=== PATIENT | male | born 1975 | race African-American/Black ===

== ENCOUNTER 2021-05-26 09:00 | Inpatient (IN) ==
[2021-05-26] MEDS ORDERED: GLUCAGON 1 MG VIAL IM PRN (11:22)
[2021-05-26] MEDS ORDERED: DEXTROSE 10% 250 ML BAG IV PRN (11:22)
[2021-05-26] MEDS ORDERED: CLORAZEPATE 3.75 MG TABLET PO PRN (11:45)
[2021-05-26] MEDS ORDERED: NITROGLYCERIN SL 0.4 MG TABLET SL PRN (11:46)
[2021-05-26] MEDS ORDERED: MORPHINE 2 MG/1 ML SYRINGE IV PRN (11:46)
[2021-05-26] MEDS: INSULIN REGULAR 100 UNIT/ML SUBCUT SCH ×3 (12:58→21:11)
[2021-05-26] MEDS: SODIUM CHLORIDE 0.9% 1,000 ML IV SCH (12:58)
[2021-05-26 13:10] LABS: Basophils % 0.1 % (0.0-0.8); Eosinophils # 0.2 10*3/uL (0.0-0.87); Eosinophils % 2.8 % (0.00-10.9); Hematocrit 38.7 VOL% (42.0-52.0); Hemoglobin 12.6 GM/DL (14.0-18.0); Immature Granulocytes % 0.4 %; Immature Granulocytes Absolute 0.03 #; Lymphocytes # 2.1 10*3/uL (1.4-4.0); Mean Corpuscular HGB Conc 32.6 GM/DL (32-36); Mean Corpuscular Volume 83.4 FL (87-102); Mean Platelet Volume 9.4 FL (9.6-12.0); Monocytes % 9.8 % (1.7-12.7); Neutrophils % 57.9 % (38.7-73.9); Platelet Count 275 T/CUMM (130-400); Red Blood Count 4.64 MC/CUMM (3.8-5.5); Red Cell Distribution Width 15.3 % (9.3-17.3); White Blood Count 7.1 T/CUMM (4-12)
[2021-05-26] MEDS ORDERED: PNEUMOCOCCAL VACCINE (23 VALENT) 0.5 ML VIAL IM ONE (13:38)
[2021-05-26 13:40] LABS: Albumin 3.5 G/DL (3.4-5.0); Bilirubin,Total 0.6 MG/DL (0.20-1.00); Calcium 9.4 MG/DL (8.5-10.1); Osmolality,Calculated 279.4 MOS/KG (273-304); Potassium 3.8 MMOL/L (3.5-5.1)
[2021-05-26] MEDS: CHLORHEXIDINE 4% SOLN 118 ML BOTTLE TOP SCH ×2 (15:30→21:10)
[2021-05-26 16:21] LABS: Arterial Base Excess iSTAT -1 MMOL/L (-2.5-2.5); Arterial Bicarbonate iSTAT 23.4 MMOL/L (20-26); Arterial O2 Saturation iSTAT 97 % (95-100); Arterial PCO2 iSTAT 37 MM HG (35-48); Arterial PO2 iSTAT 95 MM HG (80-95); Arterial Total CO2 iSTAT 25 MMO/L (23-27); Arterial pH iSTAT 7.404 (7.35-7.45)
[2021-05-26] MEDS: CHLORHEXIDINE 0.12% ORAL RINSE 60 ML BOTTLE SWISH/SPIT SCH (21:10)
[2021-05-27] MEDS: CHLORHEXIDINE 4% SOLN 118 ML BOTTLE TOP SCH (04:19)
[2021-05-27] MEDS ORDERED: VANCOMYCIN 1,000 MG VIAL ONE (04:52)
[2021-05-27] MEDS ORDERED: VANCOMYCIN 500 MG VIAL ONE (04:52)
[2021-05-27] MEDS ORDERED: PAPAVERINE 60 MG/2 ML VIAL ONE (04:52)
[2021-05-27] MEDS ORDERED: CEFUROXIME INJ 1,500 MG in SODIUM CHLORIDE 0.9% 100 ML IV ONE (05:00)
[2021-05-27] MEDS ORDERED: HEPARIN/NACL 0.9% 2 UNITS/ML 1,000 UNIT/500 ML BAG IV ONE (05:45)
[2021-05-27] MEDS ORDERED: NITROGLYCERIN DRIP 50 MG/250 ML BOTTLE IV ONE (05:45)
[2021-05-27] MEDS ORDERED: PHENYLEPHRINE DRIP 20 MG/250 ML PREMIX IV ONE (05:45)
[2021-05-27] MEDS ORDERED: PANTOPRAZOLE 40 MG TABLET PO ONE (06:00)
[2021-05-27] MEDS ORDERED: DIAZEPAM 5 MG TABLET PO ONE (06:00)
[2021-05-27] MEDS ORDERED: ETOMIDATE 40 MG/20 ML VIAL IV ONE (06:06)
[2021-05-27] MEDS ORDERED: LIDOCAINE 2% 5 ML VIAL ONE ×2 (06:06→11:42)
[2021-05-27] MEDS ORDERED: SODIUM CHLORIDE 0.9% 1,000 ML IV ONE (06:06)
[2021-05-27] MEDS ORDERED: ePHEDrine 50 MG/ML VIAL ONE (06:06)
[2021-05-27] MEDS ORDERED: SUFentanil 250 MCG/5 ML AMP ONE (06:06)
[2021-05-27] MEDS ORDERED: MINERAL OIL/PETROLATUM OPH OINT 3.5 GM TUBE ONE (06:06)
[2021-05-27] MEDS ORDERED: SODIUM CHLORIDE 0.9% 250 ML IV ONE (06:06)
[2021-05-27] MEDS ORDERED: LACTATED RINGERS 1,000 ML IV ONE (06:06)
[2021-05-27] MEDS ORDERED: AMINOCAPROIC ACID 5,000 MG/20 ML VIAL ONE (06:06)
[2021-05-27] MEDS ORDERED: MIDAZOLAM 10 MG/2 ML VIAL ONE ×4 (06:06)
[2021-05-27] MEDS ORDERED: SEVOFLURANE 1 UNIT/15 MINUTE INH ONE (06:06)
[2021-05-27] MEDS ORDERED: VECURONIUM 10 MG VIAL IV ONE (06:07)
[2021-05-27 07:40] LABS: ABG Base Excess -0.4 MMOL/L (-2.5-2.5); ABG HCO3 24.1 MMOL/L (20-26); ABG Oxygen Saturation 99.5 % (95-100); ABG PH 7.409 (7.35-7.45); ABG TCO2 21.3 MMOL/L (23-27); Glucose Heart Surgery 122 MG/DL (74-106); Hematocrit Heart Surgery 36.5 PERCENT (42-52); Hemoglobin Heart Surgery 11.9 G/DL (14.0-18.0); Ionized Calcium Arterial 1.21 MMOL/L (1.21-1.46); PH Patient Temp Arterial 7.409; Patient Temperature 37 CELCIUS; Sodium Heart/CVR 141 MMOL/L (135-145)
[2021-05-27 07:48] LABS: Mucus,Urine Occasional /LPF (Occasional); RBC,Urine <1 /HPF (0-4); Squamous Epithelial Cell,Urine Occasional /HPF (0-10); Urine Appearance Clear (Clear); Urine Color Yellow (Yellow); Urine Specific Gravity 1.015 (1.001-1.035)
[2021-05-27 07:49] LABS: Bilirubin,Urine Negative (Negative); Blood, Urine Trace mg/dL (Negative); Glucose,Urine (UA) >1000 mg/dL (Negative); Ketones,Urine Negative (Negative); Nitrite,Urine Negative (Negative); Protein,Urine Negative (Negative); Urine Urobilinogen 0.2 eU/dL (<2.0)
[2021-05-27] MEDS ORDERED: POTASSIUM CHLORIDE RIDER 20 MEQ/100 ML PREMIX IV ONE (09:03)
[2021-05-27] MEDS ORDERED: NITROPRUSSIDE 50 MG/2 ML VIAL ONE (09:03)
[2021-05-27] MEDS ORDERED: ALBUMIN 5% 25.0 GM/500 ML VIAL IV ONE (09:03)
[2021-05-27] MEDS ORDERED: PHENYLEPHRINE DRIP 40 MG/250 ML PREMIX IV ONE (09:03)
[2021-05-27] MEDS ORDERED: CALCIUM CHLORIDE 1,000 MG/10 ML SYRINGE IV ONE (09:04)
[2021-05-27 09:27] LABS: Hematocrit Heart Surgery 24.6 PERCENT (42-52); Hemoglobin Heart Surgery 7.9 G/DL (14.0-18.0); PCO2 Patient Temp Venous 34.6 MM HG; PH Patient Temp Venous 7.451; PO2 Patient Temp Venous 36.3 MM HG; Potassium Heart/CVR 4.5 MMOL/L (3.5-5.1); VBG Base Excess 0.5 MEQ/L (0-4); VBG HCO3 24.7 MEQ/L (24-28); VBG Oxygen Saturation 77.7 %; VBG PH 7.407; VBG PO2 44.6 MMHG (17-40); VBG Total CO2 23.6 MMOL/L
[2021-05-27] MEDS: CHLORHEXIDINE 0.12% ORAL RINSE 60 ML BOTTLE SWISH/SPIT SCH ×2 (09:46→21:06)
[2021-05-27] MEDS: INSULIN REGULAR 100 UNIT/ML SUBCUT SCH ×2 (09:46→11:51)
[2021-05-27 09:58] LABS: Hematocrit Heart Surgery 28.3 PERCENT (42-52); Hemoglobin Heart Surgery 9.1 G/DL (14.0-18.0); PCO2 Patient Temp Venous 32.3 MM HG; PH Patient Temp Venous 7.462; PO2 Patient Temp Venous 36.7 MM HG; Potassium Heart/CVR 4.1 MMOL/L (3.5-5.1); VBG Base Excess -0.1 MEQ/L (0-4); VBG Oxygen Saturation 77.8 %; VBG PCO2 37.4 MMHG (41-51); VBG PH 7.418; VBG PO2 45.2 MMHG (17-40); VBG Total CO2 22.3 MMOL/L
[2021-05-27 10:26] LABS: Hematocrit Heart Surgery 29.9 PERCENT (42-52); Hemoglobin Heart Surgery 9.7 G/DL (14.0-18.0); PCO2 Patient Temp Venous 30.5 MM HG; PH Patient Temp Venous 7.466; PO2 Patient Temp Venous 38.5 MM HG; Potassium Heart/CVR 3.7 MMOL/L (3.5-5.1); VBG HCO3 23.3 MEQ/L (24-28); VBG Oxygen Saturation 80.7 %; VBG PCO2 35.3 MMHG (41-51); VBG PH 7.422; VBG PO2 47.3 MMHG (17-40); VBG Total CO2 21.1 MMOL/L
[2021-05-27 10:56] LABS: Hemoglobin Heart Surgery 8.8 G/DL (14.0-18.0); PCO2 Patient Temp Venous 32.3 MM HG; PH Patient Temp Venous 7.435; PO2 Patient Temp Venous 33.5 MM HG; Potassium Heart/CVR 4.2 MMOL/L (3.5-5.1); VBG Base Excess -2.7 MEQ/L (0-4); VBG HCO3 21.4 MEQ/L (24-28); VBG Oxygen Saturation 67.8 %; VBG PCO2 33.7 MMHG (41-51); VBG PH 7.42; VBG Total CO2 22.4 MMOL/L
[2021-05-27] MEDS ORDERED: THROMBIN TOPICAL (RECOMBINANT) 5,000 UNIT VIAL TOP ONE (11:19)
[2021-05-27 11:39] LABS: ABG HCO3 21.9 MMOL/L (20-26); ABG Oxygen Saturation 99.4 % (95-100); ABG PCO2 39.9 MM HG (35-48); ABG PH 7.355 (7.35-7.45); ABG TCO2 20.8 MMOL/L (23-27); Glucose Heart Surgery 255 MG/DL (74-106); Hematocrit Heart Surgery 25.4 PERCENT (42-52); Hemoglobin Heart Surgery 8.2 G/DL (14.0-18.0); Ionized Calcium Arterial 1.18 MMOL/L (1.21-1.46); PCO2 Patient Temp Arterial 39.9 MMHG; PH Patient Temp Arterial 7.355; Patient Temperature 37 CELCIUS; Potassium Heart/CVR 3.4 MMOL/L (3.5-5.1); Sodium Heart/CVR 136 MMOL/L (135-145)
[2021-05-27] MEDS ORDERED: CALCIUM CHLORIDE 1,000 MG/10 ML VIAL IV ONE (11:40)
[2021-05-27] MEDS ORDERED: methylPREDNISolone SOD SUC 1,000 MG/8 ML VIAL ONE (11:42)
[2021-05-27] MEDS ORDERED: MAGNESIUM SULFATE 5 GM/10 ML VIAL IV ONE (11:42)
[2021-05-27] MEDS ORDERED: PROTAMINE SULFATE 250 MG/25 ML VIAL IV ONE (11:42)
[2021-05-27] MEDS ORDERED: ALBUMIN 25% 25 GM/100 ML VIAL IV ONE (11:42)
[2021-05-27] MEDS ORDERED: DEXTROSE 5% KCL 20 MEQ 20 MEQ/1,000 ML BAG IV ONE (11:42)
[2021-05-27] MEDS ORDERED: HEPARIN 10,000 UNIT/10 ML VIAL ONE (11:43)
[2021-05-27] MEDS ORDERED: SODIUM BICARBONATE 50 MEQ/50 ML VIAL IV ONE (11:43)
[2021-05-27] MEDS ORDERED: PROTAMINE SULFATE 50 MG/5 ML VIAL IV ONE (11:43)
[2021-05-27] MEDS ORDERED: MANNITOL 12.5 GM/50 ML VIAL IV ONE (11:43)
[2021-05-27] MEDS ORDERED: FUROSEMIDE 20 MG/2 ML VIAL ONE (11:43)
[2021-05-27] MEDS ORDERED: CALCIUM CHLORIDE 1,000 MG/10 ML SYRINGE IV PRN (11:48)
[2021-05-27] MEDS ORDERED: CHLORHEXIDINE 4% SOLN 118 ML BOTTLE TOP PRN (11:48)
[2021-05-27] MEDS ORDERED: DEXTROSE 50% 25 GM/50 ML SYRINGE IV PRN ×2 (11:48)
[2021-05-27] MEDS ORDERED: NITROPRUSSIDE 100 MG in DEXTROSE 5% 250 ML IV PRN (11:48)
[2021-05-27] MEDS ORDERED: MAGNESIUM SULF RIDER 4 GM/100 ML PREMIX IV PRN (11:48)
[2021-05-27] MEDS ORDERED: INSULIN REGULAR 100 UNIT/ML IV PRN (11:48)
[2021-05-27] MEDS ORDERED: MAGNESIUM SULF RIDER 2 GM/50 ML PREMIX IV PRN (11:48)
[2021-05-27] MEDS ORDERED: VECURONIUM 10 MG VIAL IV PRN ×2 (11:48)
[2021-05-27] MEDS ORDERED: MIDAZOLAM 10 MG/2 ML VIAL IV PRN (11:48)
[2021-05-27] MEDS ORDERED: POTASSIUM CHLORIDE RIDER 20 MEQ/100 ML PREMIX IV PRN (11:48)
[2021-05-27] MEDS ORDERED: INSULIN REGULAR 100 UNIT/ML IV ONE (11:48)
[2021-05-27] MEDS ORDERED: ONDANSETRON 4 MG/2 ML VIAL IV PRN (11:48)
[2021-05-27] MEDS ORDERED: MIDAZOLAM 2 MG/2 ML VIAL IV PRN (11:48)
[2021-05-27] MEDS ORDERED: POTASSIUM CHLORIDE RIDER 10 MEQ/100 ML PREMIX IV PRN (11:48)
[2021-05-27] MEDS ORDERED: ACETAMINOPHEN 650 MG SUPP RECTAL PRN (11:48)
[2021-05-27] MEDS: SODIUM CHLORIDE 0.9% 1,000 ML IV SCH (11:51)
[2021-05-27] MEDS: SODIUM CHLORIDE 0.45% 1,000 ML IV SCH ×2 (12:40)
[2021-05-27] MEDS: PHENYLEPHRINE DRIP 40 MG/250 ML PREMIX IV PRN ×2 (12:45→17:45)
[2021-05-27 13:44] LABS: ABG Base Excess -4.8 MMOL/L (-2.5-2.5); ABG HCO3 20.5 MMOL/L (20-26); ABG Oxygen Saturation 98.5 % (95-100); ABG PCO2 40.8 MM HG (35-48); ABG TCO2 19.3 MMOL/L (23-27); Glucose Heart Surgery 253 MG/DL (74-106); Hematocrit Heart Surgery 30.1 PERCENT (42-52); Hemoglobin Heart Surgery 9.7 G/DL (14.0-18.0); Potassium Heart/CVR 3.8 MMOL/L (3.5-5.1)
[2021-05-27] MEDS: LACTATED RINGERS 250 ML IV PRN ×7 (13:45→18:18)
[2021-05-27 13:47] LABS: Basophils % 0.1 % (0.0-0.8); Hematocrit 28.9 VOL% (42.0-52.0); Immature Granulocytes % 1.4 %; Lymphocytes % 9.4 % (21.2-54.2); Mean Corpuscular HGB Conc 32.5 GM/DL (32-36); Mean Corpuscular Volume 83.8 FL (87-102); Mean Platelet Volume 9.8 FL (9.6-12.0); Monocytes % 7.1 % (1.7-12.7); Platelet Count 271 T/CUMM (130-400); Red Cell Distribution Width 15.3 % (9.3-17.3)
[2021-05-27 13:51] LABS: White Blood Count 21.4 T/CUMM (4-12)
[2021-05-27 13:52] LABS: Hemoglobin 9.4 GM/DL (14.0-18.0); Red Blood Count 3.45 MC/CUMM (3.8-5.5)
[2021-05-27] MEDS: KETOROLAC 30 MG/1 ML VIAL IV SCH ×2 (14:07→20:55)
[2021-05-27 14:13] LABS: CKMB % 7.2 %
[2021-05-27 14:16] LABS: Albumin 2.9 G/DL (3.4-5.0); Bilirubin,Total 1.5 MG/DL (0.20-1.00); Calcium 9.5 MG/DL (8.5-10.1); Osmolality,Calculated 287.4 MOS/KG (273-304); Potassium 3.9 MMOL/L (3.5-5.1); Total Protein 6.2 G/DL (6.4-8.2)
[2021-05-27 14:17] LABS: High Sensitive Troponin I* 17313.3 ng/L (0-78)
[2021-05-27 14:20] LABS: Band Neutrophils 2 % (0-10); Lymphocytes 7 % (20-55); Segmented Neutrophils 87 % (50-85); Total Cells Counted 100
[2021-05-27 14:21] LABS: Anisocytosis Slight; Microcytosis Slight; Platelet Estimate Normal; Polychromasia Slight; Target Cells Slight
[2021-05-27 14:26] LABS: INR 1.1; PT Patient Result 11.9 SECS (10.5-12.0); Partial Thromboplastin Time 24.8 SECS (23.8-32.1)
[2021-05-27] MEDS: INSULIN REGULAR DRIP 100 ML IV SCH (15:00)
[2021-05-27 15:57] LABS: ABG Base Excess -6.9 MMOL/L (-2.5-2.5); ABG HCO3 18.4 MMOL/L (20-26); ABG PCO2 36.2 MM HG (35-48); ABG PH 7.325 (7.35-7.45); ABG PO2 160.3 MM HG (80-95); ABG TCO2 19.6 MMOL/L (23-27); Glucose Heart Surgery 207 MG/DL (74-106); Hemoglobin Heart Surgery 9.4 G/DL (14.0-18.0); Potassium Heart/CVR 5.1 MMOL/L (3.5-5.1)
[2021-05-27] MEDS: ALBUMIN 5% 12.5 GM/250 ML VIAL IV PRN ×2 (15:59→20:34)
[2021-05-27] MEDS: MORPHINE 10 MG/1 ML VIAL IV PRN ×2 (17:03→22:53)
[2021-05-27 18:06] LABS: ABG Base Excess -6.7 MMOL/L (-2.5-2.5); ABG HCO3 18.9 MMOL/L (20-26); ABG Oxygen Saturation 98.4 % (95-100); ABG PCO2 39.1 MM HG (35-48); ABG TCO2 17.8 MMOL/L (23-27); Glucose Heart Surgery 200 MG/DL (74-106); Hematocrit Heart Surgery 29.6 PERCENT (42-52); Hemoglobin Heart Surgery 9.5 G/DL (14.0-18.0)
[2021-05-27 19:25] LABS: ABG HCO3 19.5 MMOL/L (20-26); ABG Oxygen Saturation 98.7 % (95-100); ABG PCO2 37.4 MM HG (35-48); ABG PH 7.325 (7.35-7.45); Glucose Heart Surgery 179 MG/DL (74-106); Hematocrit Heart Surgery 29.6 PERCENT (42-52); Hemoglobin Heart Surgery 9.6 G/DL (14.0-18.0); Potassium Heart/CVR 4.9 MMOL/L (3.5-5.1)
[2021-05-27 19:51] LABS: CKMB % 7.3 %; High Sensitive Troponin I* 11575.6 ng/L (0-78)
[2021-05-27] MEDS: CEFUROXIME INJ 1,500 MG in SODIUM CHLORIDE 0.9% 100 ML IV SCH (20:58)
[2021-05-27 23:31] LABS: ABG Base Excess -3.4 MMOL/L (-2.5-2.5); ABG HCO3 21.6 MMOL/L (20-26); ABG Oxygen Saturation 98.9 % (95-100); ABG PCO2 37.6 MM HG (35-48); ABG PH 7.366 (7.35-7.45); Glucose Heart Surgery 125 MG/DL (74-106); Hematocrit Heart Surgery 27.4 PERCENT (42-52); Hemoglobin Heart Surgery 8.8 G/DL (14.0-18.0); Potassium Heart/CVR 4.8 MMOL/L (3.5-5.1)
[2021-05-28 00:10] VITALS: BP 129/61
[2021-05-28] MEDS: INSULIN REGULAR DRIP 100 ML IV SCH ×2 (00:11→13:00)
[2021-05-28 01:05] LABS: ABG Base Excess -4.5 MMOL/L (-2.5-2.5); ABG HCO3 19.8 MMOL/L (20-26); ABG Oxygen Saturation 98.1 % (95-100); ABG PCO2 33.5 MM HG (35-48); ABG PH 7.389 (7.35-7.45); ABG PO2 155.5 MM HG (80-95); ABG TCO2 20.8 MMOL/L (23-27); Glucose Heart Surgery 116 MG/DL (74-106); Hemoglobin Heart Surgery 10.2 G/DL (14.0-18.0); Potassium Heart/CVR 4.7 MMOL/L (3.5-5.1)
[2021-05-28] MEDS: KETOROLAC 30 MG/1 ML VIAL IV SCH ×4 (01:40→20:55)
[2021-05-28] MEDS: MORPHINE 10 MG/1 ML VIAL IV PRN ×3 (01:51→22:54)
[2021-05-28 03:22] LABS: ABG Base Excess -2.9 MMOL/L (-2.5-2.5); ABG Oxygen Saturation 98.8 % (95-100); ABG PCO2 40.3 MM HG (35-48); ABG PH 7.353 (7.35-7.45); ABG TCO2 20.5 MMOL/L (23-27); Glucose Heart Surgery 150 MG/DL (74-106); Hematocrit Heart Surgery 30.6 PERCENT (42-52); Hemoglobin Heart Surgery 9.9 G/DL (14.0-18.0); Potassium Heart/CVR 5.1 MMOL/L (3.5-5.1)
[2021-05-28 03:29] LABS: Basophils % 0.1 % (0.0-0.8); Hematocrit 29.3 VOL% (42.0-52.0); Hemoglobin 9.7 GM/DL (14.0-18.0); Immature Granulocytes % 0.4 %; Immature Granulocytes Absolute 0.07 #; Lymphocytes # 1.4 10*3/uL (1.4-4.0); Lymphocytes % 8.3 % (21.2-54.2); Mean Corpuscular HGB Conc 33.1 GM/DL (32-36); Mean Corpuscular Volume 83.7 FL (87-102); Mean Platelet Volume 9.7 FL (9.6-12.0); Monocytes % 10.1 % (1.7-12.7); Neutrophils % 81.1 % (38.7-73.9); Platelet Count 191 T/CUMM (130-400); Red Cell Distribution Width 15.8 % (9.3-17.3); White Blood Count 16.3 T/CUMM (4-12)
[2021-05-28 03:45] LABS: CKMB % 7.3 %
[2021-05-28 03:50] LABS: High Sensitive Troponin I* 15528.6 ng/L (0-78)
[2021-05-28 03:51] LABS: Bilirubin,Direct 0.21 MG/DL (0.0-0.20); Bilirubin,Total 0.5 MG/DL (0.20-1.00); Calcium 8.8 MG/DL (8.5-10.1); Osmolality,Calculated 286.1 MOS/KG (273-304); Potassium 5.2 MMOL/L (3.5-5.1)
[2021-05-28] MEDS: LACTATED RINGERS 250 ML IV PRN (03:59)
[2021-05-28] MEDS: PHENYLEPHRINE DRIP 40 MG/250 ML PREMIX IV PRN (04:00)
[2021-05-28 04:30] LABS: ABG Base Excess -3.9 MMOL/L (-2.5-2.5); ABG HCO3 21.2 MMOL/L (20-26); ABG Oxygen Saturation 98.7 % (95-100); ABG PCO2 38.8 MM HG (35-48); ABG PH 7.348 (7.35-7.45); ABG TCO2 19.7 MMOL/L (23-27); Glucose Heart Surgery 153 MG/DL (74-106); Hematocrit Heart Surgery 29.1 PERCENT (42-52); Hemoglobin Heart Surgery 9.4 G/DL (14.0-18.0); Potassium Heart/CVR 4.7 MMOL/L (3.5-5.1)
[2021-05-28 05:29] LABS: ABG Base Excess -2.7 MMOL/L (-2.5-2.5); ABG HCO3 22.2 MMOL/L (20-26); ABG Oxygen Saturation 98.2 % (95-100); ABG PCO2 41.5 MM HG (35-48); ABG PH 7.349 (7.35-7.45); ABG TCO2 20.9 MMOL/L (23-27); Glucose Heart Surgery 155 MG/DL (74-106); Hematocrit Heart Surgery 30.1 PERCENT (42-52); Hemoglobin Heart Surgery 9.7 G/DL (14.0-18.0); Potassium Heart/CVR 4.6 MMOL/L (3.5-5.1)
[2021-05-28 06:42] LABS: ABG Base Excess -2.5 MMOL/L (-2.5-2.5); ABG HCO3 22.3 MMOL/L (20-26); ABG Oxygen Saturation 96.4 % (95-100); ABG PCO2 42.8 MM HG (35-48); ABG PH 7.342 (7.35-7.45); ABG PO2 94.6 MM HG (80-95); ABG TCO2 21.4 MMOL/L (23-27); Glucose Heart Surgery 152 MG/DL (74-106); Hematocrit Heart Surgery 29.5 PERCENT (42-52); Hemoglobin Heart Surgery 9.5 G/DL (14.0-18.0); Potassium Heart/CVR 4.3 MMOL/L (3.5-5.1)
[2021-05-28] MEDS ORDERED: ASPIRIN CHEW 81 MG TABLET PO SCH (09:00)
[2021-05-28] MEDS ORDERED: PANTOPRAZOLE 40 MG VIAL IV SCH (09:00)
[2021-05-28] MEDS: PANTOPRAZOLE 40 MG TABLET PO SCH (09:40)
[2021-05-28] MEDS: CEFUROXIME INJ 1,500 MG in SODIUM CHLORIDE 0.9% 100 ML IV SCH ×2 (09:40→20:55)
[2021-05-28] MEDS: ASPIRIN EC 81 MG TABLET PO SCH (09:40)
[2021-05-28] MEDS: CHLORHEXIDINE 0.12% ORAL RINSE 60 ML BOTTLE SWISH/SPIT SCH ×2 (09:40→20:55)
[2021-05-28 12:50] LABS: CKMB % 6.1 %
[2021-05-28 12:51] LABS: High Sensitive Troponin I* 10817.6 ng/L (0-78)
[2021-05-28] MEDS: SODIUM CHLORIDE 0.45% 1,000 ML IV SCH ×2 (14:36)
[2021-05-29] MEDS: KETOROLAC 30 MG/1 ML VIAL IV SCH ×4 (01:15→20:55)
[2021-05-29 04:34] LABS: Basophils % 0.1 % (0.0-0.8); Hematocrit 28.3 VOL% (42.0-52.0); Hemoglobin 8.9 GM/DL (14.0-18.0); Immature Granulocytes % 0.4 %; Immature Granulocytes Absolute 0.07 #; Lymphocytes # 1.6 10*3/uL (1.4-4.0); Lymphocytes % 9.7 % (21.2-54.2); Mean Corpuscular HGB Conc 31.4 GM/DL (32-36); Mean Corpuscular Volume 86.3 FL (87-102); Mean Platelet Volume 10.4 FL (9.6-12.0); Monocytes % 10.5 % (1.7-12.7); Neutrophils % 79.3 % (38.7-73.9); Platelet Count 167 T/CUMM (130-400); Red Blood Count 3.28 MC/CUMM (3.8-5.5); Red Cell Distribution Width 15.7 % (9.3-17.3); White Blood Count 16.7 T/CUMM (4-12)
[2021-05-29] MEDS: MORPHINE 10 MG/1 ML VIAL IV PRN (04:47)
[2021-05-29 05:17] LABS: Albumin 2.8 G/DL (3.4-5.0); Bilirubin,Direct 0.11 MG/DL (0.0-0.20); Bilirubin,Total 0.5 MG/DL (0.20-1.00); Calcium 8.5 MG/DL (8.5-10.1); Osmolality,Calculated 292.7 MOS/KG (273-304); Potassium 4.4 MMOL/L (3.5-5.1); Total Protein 6.1 G/DL (6.4-8.2)
[2021-05-29 05:19] LABS: CKMB % 3.9 %; High Sensitive Troponin I* 6104.3 ng/L (0-78)
[2021-05-29] MEDS: METOPROLOL TARTRATE 25 MG TABLET PO SCH ×2 (10:00→21:15)
[2021-05-29] MEDS: ASPIRIN EC 81 MG TABLET PO SCH (10:00)
[2021-05-29] MEDS: CHLORHEXIDINE 0.12% ORAL RINSE 60 ML BOTTLE SWISH/SPIT SCH ×2 (10:00→21:16)
[2021-05-29] MEDS: PANTOPRAZOLE 40 MG TABLET PO SCH (10:00)
[2021-05-29] MEDS: SODIUM CHLORIDE 0.45% 1,000 ML IV SCH ×2 (13:08)
[2021-05-29] MEDS: INSULIN REGULAR DRIP 100 ML IV SCH (13:09)
[2021-05-29] MEDS ORDERED: ALUMINUM/MAGNES/SIMETH MAX STR 30 ML UDCUP PO PRN (13:56)
[2021-05-29] MEDS ORDERED: DEXTROSE 10% 250 ML BAG IV PRN (13:56)
[2021-05-29] MEDS ORDERED: MAGNESIUM HYDROXIDE SUSP 30 ML UDCUP PO PRN (13:56)
[2021-05-29] MEDS ORDERED: MAGNESIUM SULF RIDER 2 GM/50 ML PREMIX IV PRN (13:56)
[2021-05-29] MEDS ORDERED: ACETAMINOPHEN 325 MG TABLET PO PRN (13:56)
[2021-05-29] MEDS ORDERED: GLUCAGON 1 MG VIAL IM PRN (13:56)
[2021-05-29] MEDS ORDERED: ONDANSETRON 4 MG/2 ML VIAL IV PRN (13:56)
[2021-05-29] MEDS ORDERED: MAGNESIUM SULF RIDER 4 GM/100 ML PREMIX IV PRN (13:56)
[2021-05-29] MEDS ORDERED: ZALEPLON 5 MG CAPSULE PO PRN (13:56)
[2021-05-29] MEDS: DOCUSATE SODIUM 100 MG CAPSULE PO SCH (14:00)
[2021-05-29] MEDS: oxyCODONE/ACETAMINOPHEN 5-325 MG TABLET PO PRN ×2 (16:36→21:16)
[2021-05-29] MEDS: ATORVASTATIN 80 MG TABLET PO SCH (21:15)
[2021-05-29] MEDS: CITALOPRAM 20 MG TABLET PO SCH (21:15)
[2021-05-29] MEDS: allopurinoL 300 MG TABLET PO SCH (21:16)
[2021-05-29] MEDS: GABAPENTIN 600 MG TABLET PO SCH (21:16)
[2021-05-30] MEDS: KETOROLAC 30 MG/1 ML VIAL IV SCH ×4 (01:30→19:55)
[2021-05-30] MEDS: oxyCODONE/ACETAMINOPHEN 5-325 MG TABLET PO PRN ×2 (03:13→20:51)
[2021-05-30 04:45] LABS: Basophils % 0.1 % (0.0-0.8); Eosinophils % 0.1 % (0.00-10.9); Hematocrit 28.3 VOL% (42.0-52.0); Immature Granulocytes % 0.7 %; Immature Granulocytes Absolute 0.12 #; Lymphocytes # 1.6 10*3/uL (1.4-4.0); Lymphocytes % 9.2 % (21.2-54.2); Mean Corpuscular HGB Conc 31.8 GM/DL (32-36); Monocytes % 9.6 % (1.7-12.7); Neutrophils % 80.3 % (38.7-73.9); Platelet Count 195 T/CUMM (130-400); Red Blood Count 3.29 MC/CUMM (3.8-5.5); Red Cell Distribution Width 15.8 % (9.3-17.3); White Blood Count 17.3 T/CUMM (4-12)
[2021-05-30 05:05] LABS: Albumin 2.8 G/DL (3.4-5.0); Bilirubin,Direct 0.21 MG/DL (0.0-0.20); Bilirubin,Indirect 0.7 MG/DL (0.0-1.0); Bilirubin,Total 0.9 MG/DL (0.20-1.00); CKMB % 2.1 %; Calcium 8.8 MG/DL (8.5-10.1); High Sensitive Troponin I* 4386.1 ng/L (0-78); Osmolality,Calculated 296.6 MOS/KG (273-304); Total Protein 6.5 G/DL (6.4-8.2)
[2021-05-30] MEDS ORDERED: FUROSEMIDE 40 MG/4 ML VIAL IV ONE (06:00)
[2021-05-30] MEDS: GABAPENTIN 600 MG TABLET PO SCH ×2 (09:00→20:52)
[2021-05-30] MEDS: PANTOPRAZOLE 40 MG TABLET PO SCH (09:59)
[2021-05-30] MEDS: DOCUSATE SODIUM 100 MG CAPSULE PO SCH (09:59)
[2021-05-30] MEDS: METOPROLOL SUCCINATE XL 25 MG TABLET PO SCH (09:59)
[2021-05-30] MEDS: ASPIRIN EC 81 MG TABLET PO SCH (09:59)
[2021-05-30] MEDS: ASCORBIC ACID 500 MG TABLET PO SCH ×2 (09:59→20:50)
[2021-05-30] MEDS: CHLORHEXIDINE 0.12% ORAL RINSE 60 ML BOTTLE SWISH/SPIT SCH ×2 (10:00→20:54)
[2021-05-30] MEDS: FERROUS SULFATE 325 MG TABLET PO SCH (10:06)
[2021-05-30] MEDS: POLYETHYLENE GLYCOL POWDER 17 GM PACK PO SCH (10:20)
[2021-05-30] MEDS: CITALOPRAM 20 MG TABLET PO SCH (20:50)
[2021-05-30] MEDS: allopurinoL 300 MG TABLET PO SCH (20:51)
[2021-05-30] MEDS: ATORVASTATIN 80 MG TABLET PO SCH (20:51)
[2021-05-31] MEDS: KETOROLAC 30 MG/1 ML VIAL IV SCH ×4 (01:14→20:16)
[2021-05-31] MEDS: oxyCODONE/ACETAMINOPHEN 5-325 MG TABLET PO PRN ×2 (01:18→09:30)
[2021-05-31 03:44] LABS: Basophils % 0.1 % (0.0-0.8); Eosinophils # 0.1 10*3/uL (0.0-0.87); Eosinophils % 0.5 % (0.00-10.9); Hematocrit 27.4 VOL% (42.0-52.0); Hemoglobin 8.8 GM/DL (14.0-18.0); Immature Granulocytes % 0.6 %; Immature Granulocytes Absolute 0.08 #; Lymphocytes # 2.7 10*3/uL (1.4-4.0); Lymphocytes % 19.6 % (21.2-54.2); Mean Corpuscular HGB Conc 32.1 GM/DL (32-36); Mean Corpuscular Volume 85.4 FL (87-102); Mean Platelet Volume 9.8 FL (9.6-12.0); Monocytes % 7.2 % (1.7-12.7); Platelet Count 246 T/CUMM (130-400); Red Blood Count 3.21 MC/CUMM (3.8-5.5); Red Cell Distribution Width 15.9 % (9.3-17.3); White Blood Count 13.6 T/CUMM (4-12)
[2021-05-31 04:10] LABS: Albumin 2.8 G/DL (3.4-5.0); Bilirubin,Direct 0.22 MG/DL (0.0-0.20); Bilirubin,Indirect 0.5 MG/DL (0.0-1.0); Bilirubin,Total 0.7 MG/DL (0.20-1.00); CKMB % 1.5 %; Calcium 8.4 MG/DL (8.5-10.1); High Sensitive Troponin I* 3958.4 ng/L (0-78); Osmolality,Calculated 289.1 MOS/KG (273-304); Potassium 4.1 MMOL/L (3.5-5.1); Total Protein 6.5 G/DL (6.4-8.2)
[2021-05-31] MEDS: POTASSIUM CHLORIDE 20 MEQ TABLET PO PRN (05:57)
[2021-05-31] MEDS: DOCUSATE SODIUM 100 MG CAPSULE PO SCH (09:28)
[2021-05-31] MEDS: ASPIRIN EC 81 MG TABLET PO SCH (09:28)
[2021-05-31] MEDS: GABAPENTIN 600 MG TABLET PO SCH ×2 (09:29→20:20)
[2021-05-31] MEDS: FERROUS SULFATE 325 MG TABLET PO SCH (09:29)
[2021-05-31] MEDS: PANTOPRAZOLE 40 MG TABLET PO SCH (09:29)
[2021-05-31] MEDS: METOPROLOL SUCCINATE XL 25 MG TABLET PO SCH (09:30)
[2021-05-31] MEDS: ASCORBIC ACID 500 MG TABLET PO SCH ×2 (09:30→20:20)
[2021-05-31] MEDS: CHLORHEXIDINE 0.12% ORAL RINSE 60 ML BOTTLE SWISH/SPIT SCH ×2 (09:32→20:20)
[2021-05-31] MEDS: POLYETHYLENE GLYCOL POWDER 17 GM PACK PO SCH (09:32)
[2021-05-31] MEDS: CITALOPRAM 20 MG TABLET PO SCH (20:20)
[2021-05-31] MEDS: ATORVASTATIN 80 MG TABLET PO SCH (20:20)
[2021-05-31] MEDS: allopurinoL 300 MG TABLET PO SCH (20:20)
[2021-06-01] MEDS: KETOROLAC 30 MG/1 ML VIAL IV SCH ×2 (02:10→07:20)
[2021-06-01 03:44] LABS: Basophils % 0.3 % (0.0-0.8); Eosinophils # 0.3 10*3/uL (0.0-0.87); Eosinophils % 2.1 % (0.00-10.9); Hematocrit 27.6 VOL% (42.0-52.0); Hemoglobin 9.1 GM/DL (14.0-18.0); Immature Granulocytes % 0.9 %; Lymphocytes # 2.4 10*3/uL (1.4-4.0); Lymphocytes % 20.7 % (21.2-54.2); Mean Corpuscular Volume 85.2 FL (87-102); Mean Platelet Volume 9.4 FL (9.6-12.0); Platelet Count 242 T/CUMM (130-400); Red Blood Count 3.24 MC/CUMM (3.8-5.5); Red Cell Distribution Width 15.8 % (9.3-17.3); White Blood Count 11.8 T/CUMM (4-12)
[2021-06-01 03:59] LABS: Albumin 2.5 G/DL (3.4-5.0); Bilirubin,Total 0.5 MG/DL (0.20-1.00); Calcium 8.7 MG/DL (8.5-10.1); Osmolality,Calculated 286.4 MOS/KG (273-304); Potassium 4.4 MMOL/L (3.5-5.1); Total Protein 6.2 G/DL (6.4-8.2)
[2021-06-01] MEDS: POTASSIUM CHLORIDE 20 MEQ TABLET PO PRN (05:24)
[2021-06-01] MEDS: DOCUSATE SODIUM 100 MG CAPSULE PO SCH (08:48)
[2021-06-01] MEDS: FERROUS SULFATE 325 MG TABLET PO SCH (08:48)
[2021-06-01] MEDS: CHLORHEXIDINE 0.12% ORAL RINSE 60 ML BOTTLE SWISH/SPIT SCH ×2 (08:48→20:39)
[2021-06-01] MEDS: POLYETHYLENE GLYCOL POWDER 17 GM PACK PO SCH (08:48)
[2021-06-01] MEDS: METOPROLOL SUCCINATE XL 25 MG TABLET PO SCH (08:48)
[2021-06-01] MEDS: ASCORBIC ACID 500 MG TABLET PO SCH ×2 (08:48→20:36)
[2021-06-01] MEDS: PANTOPRAZOLE 40 MG TABLET PO SCH (08:48)
[2021-06-01] MEDS: ASPIRIN EC 81 MG TABLET PO SCH (08:48)
[2021-06-01] MEDS: GABAPENTIN 600 MG TABLET PO SCH ×2 (08:48→20:36)
[2021-06-01] MEDS: oxyCODONE/ACETAMINOPHEN 5-325 MG TABLET PO PRN (15:50)
[2021-06-01] MEDS: allopurinoL 300 MG TABLET PO SCH (20:36)
[2021-06-01] MEDS: CITALOPRAM 20 MG TABLET PO SCH (20:37)
[2021-06-02 04:51] LABS: Basophils % 0.2 % (0.0-0.8); Eosinophils # 0.4 10*3/uL (0.0-0.87); Eosinophils % 2.7 % (0.00-10.9); Hematocrit 27.7 VOL% (42.0-52.0); Hemoglobin 8.9 GM/DL (14.0-18.0); Immature Granulocytes % 0.8 %; Immature Granulocytes Absolute 0.11 #; Lymphocytes # 2.6 10*3/uL (1.4-4.0); Mean Corpuscular HGB Conc 32.1 GM/DL (32-36); Mean Corpuscular Volume 85.2 FL (87-102); Mean Platelet Volume 9.3 FL (9.6-12.0); Monocytes % 7.3 % (1.7-12.7); Platelet Count 253 T/CUMM (130-400); Red Blood Count 3.25 MC/CUMM (3.8-5.5); Red Cell Distribution Width 15.5 % (9.3-17.3); White Blood Count 13.9 T/CUMM (4-12)
[2021-06-02 05:20] LABS: Alanine Aminotransferase 139 U/L (16-61); Albumin 2.6 G/DL (3.4-5.0); Alkaline Phosphatase 82 U/L (45-117); Aspartate Amino Transferase 58 U/L (0-37); Bilirubin,Indirect 0.3 MG/DL (0.0-1.0); Blood Urea Nitrogen 24 MG/DL (7-18); Calcium 8.6 MG/DL (8.5-10.1); Carbon Dioxide 26 MMOL/L (21-32); Estimated Glom Filtration Rate 127 ML/MIN; Glucose 111 MG/DL (74-106); Osmolality,Calculated 287.1 MOS/KG (273-304); Potassium 4.5 MMOL/L (3.5-5.1); Sodium 142 MMOL/L (136-145); Total Protein 6.5 G/DL (6.4-8.2)
[2021-06-02] MEDS: oxyCODONE/ACETAMINOPHEN 5-325 MG TABLET PO PRN (06:38)
[2021-06-02] MEDS: CHLORHEXIDINE 0.12% ORAL RINSE 60 ML BOTTLE SWISH/SPIT SCH (08:48)
[2021-06-02] MEDS ORDERED: SACUBITRIL/VALSARTAN 49-51 MG TABLET PO SCH (09:00)
[2021-06-02] MEDS: PANTOPRAZOLE 40 MG TABLET PO SCH (09:03)
[2021-06-02] MEDS: GABAPENTIN 600 MG TABLET PO SCH (09:03)
[2021-06-02] MEDS: ASCORBIC ACID 500 MG TABLET PO SCH (09:03)
[2021-06-02] MEDS: DOCUSATE SODIUM 100 MG CAPSULE PO SCH (09:03)
[2021-06-02] MEDS: ASPIRIN EC 81 MG TABLET PO SCH (09:03)
[2021-06-02] MEDS: METOPROLOL SUCCINATE XL 25 MG TABLET PO SCH (09:03)
[2021-06-02] MEDS: FERROUS SULFATE 325 MG TABLET PO SCH (09:03)
[2021-06-02] MEDS: POLYETHYLENE GLYCOL POWDER 17 GM PACK PO SCH (09:11)
[2021-06-02] MEDS ORDERED: PNEUMOCOCCAL VACCINE (23 VALENT) 0.5 ML VIAL IM ONE (09:30)
== END 2021-06-02 11:02 | disposition home health service (06) | DRG 235 ==
LOC: N.TELEN 11:36 → N.CVR 05-27 12:15 → N.ICU 05-28 07:00

== ENCOUNTER 2021-06-26 07:07 | Inpatient (IN) ==
[2021-06-26] MEDS ORDERED: DEXTROSE 10% 250 ML BAG IV PRN (08:06)
[2021-06-26] MEDS ORDERED: GLUCAGON 1 MG VIAL IM PRN (08:06)
[2021-06-26] MEDS ORDERED: VANCOMYCIN INJ 1,000 MG in SODIUM CHLORIDE 0.9% 250 ML IV SCH (12:00)
[2021-06-26 12:07] LABS: Basophils % 0.3 % (0.0-0.8); Eosinophils # 0.2 10*3/uL (0.0-0.87); Eosinophils % 2.5 % (0.00-10.9); Hematocrit 33.5 VOL% (42.0-52.0); Hemoglobin 10.6 GM/DL (14.0-18.0); Immature Granulocytes % 0.4 %; Immature Granulocytes Absolute 0.03 #; Lymphocytes # 2.2 10*3/uL (1.4-4.0); Lymphocytes % 30.8 % (21.2-54.2); Mean Corpuscular HGB Conc 31.6 GM/DL (32-36); Mean Corpuscular Volume 85.2 FL (87-102); Mean Platelet Volume 8.9 FL (9.6-12.0); Monocytes # 0.6 10*3/uL (0.11-0.8); Monocytes % 8.8 % (1.7-12.7); Neutrophils % 57.2 % (38.7-73.9); Platelet Count 358 T/CUMM (130-400); Red Blood Count 3.93 MC/CUMM (3.8-5.5); Red Cell Distribution Width 16.3 % (9.3-17.3); White Blood Count 7.1 T/CUMM (4-12)
[2021-06-26 12:26] LABS: Albumin 3.3 G/DL (3.4-5.0); Bilirubin,Total 0.4 MG/DL (0.20-1.00); Calcium 9.2 MG/DL (8.5-10.1); Osmolality,Calculated 287.7 MOS/KG (273-304); Potassium 4.3 MMOL/L (3.5-5.1); Total Protein 7.7 G/DL (6.4-8.2)
[2021-06-26] MEDS: INSULIN REGULAR 100 UNIT/ML SUBCUT SCH ×3 (12:56→20:30)
[2021-06-26] MEDS: LEVOFLOXACIN INJ 750 MG/150 ML PREMIX IV SCH (13:11)
[2021-06-26] MEDS: VANCOMYCIN INJ 1,750 MG in SODIUM CHLORIDE 0.9% 500 ML IV SCH (15:27)
[2021-06-26] MEDS: SACUBITRIL/VALSARTAN 49-51 MG TABLET PO SCH (20:26)
[2021-06-26] MEDS: GABAPENTIN 600 MG TABLET PO SCH (20:26)
[2021-06-26] MEDS: oxyCODONE/ACETAMINOPHEN 5-325 MG TABLET PO PRN (20:27)
[2021-06-26] MEDS: ASCORBIC ACID 500 MG TABLET PO SCH (20:27)
[2021-06-26] MEDS: CITALOPRAM 20 MG TABLET PO SCH (20:27)
[2021-06-27] MEDS: VANCOMYCIN INJ 1,750 MG in SODIUM CHLORIDE 0.9% 500 ML IV SCH ×2 (01:11→14:07)
[2021-06-27] MEDS: INSULIN REGULAR 100 UNIT/ML SUBCUT SCH ×4 (08:06→21:04)
[2021-06-27] MEDS: GABAPENTIN 600 MG TABLET PO SCH ×2 (08:31→20:56)
[2021-06-27] MEDS: METOPROLOL SUCCINATE XL 25 MG TABLET PO SCH (08:31)
[2021-06-27] MEDS: ASPIRIN CHEW 81 MG TABLET PO SCH (08:31)
[2021-06-27] MEDS: ASCORBIC ACID 500 MG TABLET PO SCH ×2 (08:31→20:56)
[2021-06-27] MEDS: SACUBITRIL/VALSARTAN 49-51 MG TABLET PO SCH ×2 (08:31→20:55)
[2021-06-27] MEDS: LEVOFLOXACIN INJ 750 MG/150 ML PREMIX IV SCH (11:47)
[2021-06-27] MEDS: oxyCODONE/ACETAMINOPHEN 5-325 MG TABLET PO PRN (20:55)
[2021-06-27] MEDS: PANTOPRAZOLE 40 MG TABLET PO SCH (20:56)
[2021-06-27] MEDS: CITALOPRAM 20 MG TABLET PO SCH (20:56)
[2021-06-28] MEDS: VANCOMYCIN INJ 1,750 MG in SODIUM CHLORIDE 0.9% 500 ML IV SCH ×2 (00:56→14:00)
[2021-06-28 06:49] LABS: Basophils % 0.3 % (0.0-0.8); Eosinophils # 0.3 10*3/uL (0.0-0.87); Eosinophils % 3.9 % (0.00-10.9); Hematocrit 29.9 VOL% (42.0-52.0); Hemoglobin 9.3 GM/DL (14.0-18.0); Immature Granulocytes % 0.3 %; Immature Granulocytes Absolute 0.02 #; Lymphocytes # 1.8 10*3/uL (1.4-4.0); Lymphocytes % 28.4 % (21.2-54.2); Mean Corpuscular HGB Conc 31.1 GM/DL (32-36); Mean Corpuscular Volume 85.7 FL (87-102); Mean Platelet Volume 9.4 FL (9.6-12.0); Monocytes # 0.6 10*3/uL (0.11-0.8); Monocytes % 9.5 % (1.7-12.7); Neutrophils % 57.6 % (38.7-73.9); Platelet Count 303 T/CUMM (130-400); Red Blood Count 3.49 MC/CUMM (3.8-5.5); White Blood Count 6.4 T/CUMM (4-12)
[2021-06-28 07:04] LABS: Calcium 8.6 MG/DL (8.5-10.1); Osmolality,Calculated 282.1 MOS/KG (273-304); Potassium 3.8 MMOL/L (3.5-5.1)
[2021-06-28] MEDS: METOPROLOL SUCCINATE XL 25 MG TABLET PO SCH (08:28)
[2021-06-28] MEDS: GABAPENTIN 600 MG TABLET PO SCH ×2 (08:28→20:29)
[2021-06-28] MEDS: SACUBITRIL/VALSARTAN 49-51 MG TABLET PO SCH ×2 (08:28→20:30)
[2021-06-28] MEDS: ASCORBIC ACID 500 MG TABLET PO SCH ×2 (08:28→20:29)
[2021-06-28] MEDS: ASPIRIN CHEW 81 MG TABLET PO SCH (08:28)
[2021-06-28] MEDS: INSULIN REGULAR 100 UNIT/ML SUBCUT SCH ×4 (09:20→20:31)
[2021-06-28] MEDS: LEVOFLOXACIN INJ 750 MG/150 ML PREMIX IV SCH (12:26)
[2021-06-28] MEDS: PANTOPRAZOLE 40 MG TABLET PO SCH (20:29)
[2021-06-28] MEDS: oxyCODONE/ACETAMINOPHEN 5-325 MG TABLET PO PRN (20:30)
[2021-06-28] MEDS: CITALOPRAM 20 MG TABLET PO SCH (20:30)
[2021-06-29] MEDS: VANCOMYCIN INJ 1,750 MG in SODIUM CHLORIDE 0.9% 500 ML IV SCH (01:48)
[2021-06-29] MEDS: ASPIRIN CHEW 81 MG TABLET PO SCH (08:48)
[2021-06-29] MEDS: SACUBITRIL/VALSARTAN 49-51 MG TABLET PO SCH ×2 (08:48→21:04)
[2021-06-29] MEDS: METOPROLOL SUCCINATE XL 25 MG TABLET PO SCH (08:48)
[2021-06-29] MEDS: GABAPENTIN 600 MG TABLET PO SCH ×2 (08:48→21:04)
[2021-06-29] MEDS: ASCORBIC ACID 500 MG TABLET PO SCH ×2 (08:51→21:04)
[2021-06-29] MEDS: INSULIN REGULAR 100 UNIT/ML SUBCUT SCH ×4 (09:44→21:06)
[2021-06-29] MEDS: LEVOFLOXACIN INJ 750 MG/150 ML PREMIX IV SCH (12:27)
[2021-06-29] MEDS: PANTOPRAZOLE 40 MG TABLET PO SCH (21:02)
[2021-06-29] MEDS: oxyCODONE/ACETAMINOPHEN 5-325 MG TABLET PO PRN (21:03)
[2021-06-29] MEDS: CITALOPRAM 20 MG TABLET PO SCH (21:04)
[2021-06-30 05:29] LABS: Basophils % 0.3 % (0.0-0.8); Eosinophils # 0.2 10*3/uL (0.0-0.87); Hemoglobin 9.8 GM/DL (14.0-18.0); Immature Granulocytes % 0.4 %; Immature Granulocytes Absolute 0.03 #; Lymphocytes # 1.8 10*3/uL (1.4-4.0); Mean Corpuscular HGB Conc 31.6 GM/DL (32-36); Mean Corpuscular Volume 83.6 FL (87-102); Mean Platelet Volume 9.4 FL (9.6-12.0); Monocytes # 0.8 10*3/uL (0.11-0.8); Monocytes % 10.8 % (1.7-12.7); Neutrophils % 61.5 % (38.7-73.9); Platelet Count 302 T/CUMM (130-400); Red Blood Count 3.71 MC/CUMM (3.8-5.5); Red Cell Distribution Width 15.9 % (9.3-17.3); White Blood Count 7.3 T/CUMM (4-12)
[2021-06-30 05:53] LABS: Calcium 9.6 MG/DL (8.5-10.1); Osmolality,Calculated 279.3 MOS/KG (273-304); Potassium 4.3 MMOL/L (3.5-5.1)
[2021-06-30] MEDS: INSULIN REGULAR 100 UNIT/ML SUBCUT SCH (07:49)
[2021-06-30] MEDS ORDERED: LEVOFLOXACIN 750 MG TABLET PO SCH (08:00)
[2021-06-30] MEDS: SACUBITRIL/VALSARTAN 49-51 MG TABLET PO SCH (08:20)
[2021-06-30] MEDS: ASPIRIN CHEW 81 MG TABLET PO SCH (08:21)
[2021-06-30] MEDS: ASCORBIC ACID 500 MG TABLET PO SCH (08:21)
[2021-06-30] MEDS: GABAPENTIN 600 MG TABLET PO SCH (08:21)
[2021-06-30] MEDS: METOPROLOL SUCCINATE XL 25 MG TABLET PO SCH (08:21)
[2021-06-30 08:29] VITALS: BP 124/71
== END 2021-06-30 11:02 | disposition home health service (06) | DRG 863 ==
LOC: N.3E 11:06